=== PATIENT | male | born 1965 | race Caucasian/White ===

== ENCOUNTER 2024-02-02 14:25 | Emergency (ER) | payer OTHER ==
[~2024-02-02] VITALS: Ht 175.3 cm; Wt 87.1 kg
[2024-02-02 15:13] VITALS: BP 145/90; TEMP 98
[2024-02-02] MEDS ORDERED: PERM60CR4 TP (15:45)
[2024-02-02 16:15] VITALS: O2SAT 99
== END 2024-02-02 16:17 | disposition home or self-care (01) ==
LOC: ER 15:03
DX: R21 Rash and other nonspecific skin eruption (principal)